=== PATIENT | male | born 1940 | race Caucasian/White ===

== ENCOUNTER 2019-03-22 12:56 | Inpatient (IN) ==
[2019-03-22 14:06] LABS: BASOPHILS # (AUTO) 0.05 10*3/UL; BASOPHILS % (AUTO) 0.6 % (0-1); EOSINOPHILS # (AUTO) 0.15 10*3/UL; EOSINOPHILS % (AUTO) 1.8 % (0-8); Hematocrit [HCT] 44.8 % (42.0-52.0); Hemoglobin [HGB] 14.9 g/dL (14.0-18.0); LYMPHOCYTES # (AUTO) 1.61 10*3/uL; MEAN CORPUSCULAR HGB CONC 33.3 g/dL (33-37); MEAN CORPUSCULAR VOLUME 96.3 FL (80-90); MONOCYTES # (AUTO) 0.81 10*3/UL (0.3-0.8); MONOCYTES % (AUTO) 9.6 % (5-15); NEUTROPHILS # (AUTO) 5.74 10*3/UL; NEUTROPHILS % (AUTO) 68.1 % (50-80); RED BLOOD COUNT 4.65 10^6/uL (4.70-6.10)
[2019-03-22 14:07] LABS: PLATELET MORPHOLOGY COMMENT NORMAL MORPHOLOGY (NORM); RBC MORPHOLOGY COMMENT NORMAL MORPHOLOGY (NORM); WBC MORPHOLOGY COMMENT NORMAL MORPHOLOGY (NORM)
[2019-03-22 14:14] LABS: BLOOD UREA NITROGEN 22 mg/dL (7-22); BUN/CREATININE RATIO 24.44 (6-20); SERUM ALBUMIN 3.8 g/dL (3.5-4.8)
[2019-03-22] MEDS ORDERED: cefTRIAXone Inj 1 GM in Sodium Chloride 0.9% 100 ML IV ONE (17:23)
[2019-03-22] MEDS ORDERED: FUROSEMIDE 10 MG/1 ML - 4 ML IVP ONE (17:29)
[2019-03-22] MEDS ORDERED: LIDOCAINE W/ SODIUM BICARB 0.5 ML SYR SUBD PRN (20:11)
[2019-03-22] MEDS ORDERED: Metoprolol TARTRATE Tab 50 MG TAB PO SCH (21:00)
[2019-03-22] MEDS: Warfarin 5 MG TAB PO SCH (22:17)
[2019-03-22] MEDS: Simvastatin Tab 40 MG TAB PO SCH (22:17)
[2019-03-22] MEDS: Metoprolol TARTRATE Tab 25 MG TAB PO SCH (22:28)
[2019-03-23] MEDS: LEVOTHYROXINE 50 MCG TABLET PO SCH (04:42)
[2019-03-23 05:19] LABS: BASOPHILS # (AUTO) 0.06 10*3/UL; BASOPHILS % (AUTO) 0.7 % (0-1); EOSINOPHILS # (AUTO) 0.16 10*3/UL; EOSINOPHILS % (AUTO) 1.7 % (0-8); Hematocrit [HCT] 45.6 % (42.0-52.0); Hemoglobin [HGB] 15.3 g/dL (14.0-18.0); LYMPHOCYTES # (AUTO) 2.05 10*3/uL; MEAN CORPUSCULAR HGB CONC 33.6 g/dL (33-37); MEAN CORPUSCULAR VOLUME 95.8 FL (80-90); MEAN PLATELET VOLUME 10.1 FL (7.4-12.2); MONOCYTES # (AUTO) 0.91 10*3/UL (0.3-0.8); MONOCYTES % (AUTO) 9.9 % (5-15); NEUTROPHILS # (AUTO) 5.89 10*3/UL; NEUTROPHILS % (AUTO) 64.1 % (50-80); RED BLOOD COUNT 4.76 10^6/uL (4.70-6.10)
[2019-03-23 05:26] LABS: PLATELET MORPHOLOGY COMMENT NORMAL MORPHOLOGY (NORM); RBC MORPHOLOGY COMMENT NORMAL MORPHOLOGY (NORM); WBC MORPHOLOGY COMMENT NORMAL MORPHOLOGY (NORM)
[2019-03-23 05:32] LABS: BLOOD UREA NITROGEN 24 mg/dL (7-22)
[2019-03-23] MEDS: OMEPRAZOLE 20 MG CAPSULE PO SCH (06:56)
[2019-03-23] MEDS: FUROSEMIDE 10 MG/1 ML - 4 ML IVP SCH ×2 (06:57→13:24)
[2019-03-23] MEDS: Meloxicam Tab 7.5 MG TABLET PO SCH (08:43)
[2019-03-23] MEDS: ASPIRIN 81 MG (BABY) CHEWABLE TABLET PO SCH (08:44)
[2019-03-23] MEDS: Metoprolol TARTRATE Tab 25 MG TAB PO SCH ×2 (08:44→20:43)
[2019-03-23] MEDS ORDERED: POTASSIUM CHLORIDE 20 MEQ TAB PO SCH (09:00)
[2019-03-23] MEDS ORDERED: Metoprolol TARTRATE Tab 25 MG TAB PO SCH (09:00)
[2019-03-23] MEDS: cefTRIAXone Inj 2 GM in Sodium Chloride 0.9% 100 ML IV SCH (17:03)
[2019-03-23] MEDS: POTASSIUM CHLORIDE 20 MEQ TAB PO SCH (17:48)
[2019-03-23] MEDS ORDERED: MAGNESIUM OXIDE 400 MG TABLET PO SCH (17:51)
[2019-03-23] MEDS ORDERED: MAGNESIUM OXIDE 400 MG TABLET PO ONE (18:15)
[2019-03-23] MEDS: Simvastatin Tab 40 MG TAB PO SCH (20:42)
[2019-03-23] MEDS: Warfarin 5 MG TAB PO SCH (20:43)
[2019-03-23] MEDS ORDERED: diphenhydrAMINE 25 MG CAPSULE PO PRN (21:00)
[2019-03-24 05:05] LABS: BLOOD UREA NITROGEN 26 mg/dL (7-22)
[2019-03-24] MEDS: LEVOTHYROXINE 50 MCG TABLET PO SCH (05:58)
[2019-03-24] MEDS: OMEPRAZOLE 20 MG CAPSULE PO SCH (07:17)
[2019-03-24] MEDS: POTASSIUM CHLORIDE 20 MEQ TAB PO SCH ×3 (07:17→20:51)
[2019-03-24] MEDS: FUROSEMIDE 10 MG/1 ML - 4 ML IVP SCH (07:17)
[2019-03-24] MEDS: Meloxicam Tab 7.5 MG TABLET PO SCH (09:07)
[2019-03-24] MEDS: Metoprolol TARTRATE Tab 25 MG TAB PO SCH ×2 (09:07→20:52)
[2019-03-24] MEDS: ASPIRIN 81 MG (BABY) CHEWABLE TABLET PO SCH (09:07)
[2019-03-24] MEDS ORDERED: LIDOCAINE HCL 2 % 10 ML JELLY URO-JECT TOPICAL PRN (10:47)
[2019-03-24] MEDS: cefTRIAXone Inj 2 GM in Sodium Chloride 0.9% 100 ML IV SCH (17:31)
[2019-03-24] MEDS: Warfarin 5 MG TAB PO SCH (20:52)
[2019-03-24] MEDS: MAGNESIUM OXIDE 400 MG TABLET PO SCH (20:52)
[2019-03-24] MEDS: Simvastatin Tab 40 MG TAB PO SCH (20:54)
[2019-03-25] MEDS: LEVOTHYROXINE 50 MCG TABLET PO SCH (04:44)
[2019-03-25 04:53] LABS: BASOPHILS # (AUTO) 0.05 10*3/UL; BASOPHILS % (AUTO) 0.4 % (0-1); EOSINOPHILS # (AUTO) 0.15 10*3/UL; EOSINOPHILS % (AUTO) 1.3 % (0-8); Hemoglobin [HGB] 15.5 g/dL (14.0-18.0); MEAN CORPUSCULAR HGB CONC 33.7 g/dL (33-37); MEAN CORPUSCULAR VOLUME 95.2 FL (80-90); MEAN PLATELET VOLUME 10.1 FL (7.4-12.2); MONOCYTES % (AUTO) 10.1 % (5-15); NEUTROPHILS # (AUTO) 8.98 10*3/UL; RED BLOOD COUNT 4.83 10^6/uL (4.70-6.10)
[2019-03-25 05:02] LABS: PLATELET MORPHOLOGY COMMENT NORMAL MORPHOLOGY (NORM); RBC MORPHOLOGY COMMENT NORMAL MORPHOLOGY (NORM); WBC MORPHOLOGY COMMENT NORMAL MORPHOLOGY (NORM)
[2019-03-25 05:09] LABS: BLOOD UREA NITROGEN 26 mg/dL (7-22); SERUM ALBUMIN 4.1 g/dL (3.5-4.8)
[2019-03-25] MEDS: OMEPRAZOLE 20 MG CAPSULE PO SCH (07:28)
[2019-03-25] MEDS: ASPIRIN 81 MG (BABY) CHEWABLE TABLET PO SCH (08:42)
[2019-03-25] MEDS: Meloxicam Tab 7.5 MG TABLET PO SCH (08:42)
[2019-03-25] MEDS: POTASSIUM CHLORIDE 20 MEQ TAB PO SCH ×2 (08:42→21:00)
[2019-03-25] MEDS: Metoprolol TARTRATE Tab 25 MG TAB PO SCH ×2 (08:42→21:00)
[2019-03-25] MEDS ORDERED: Magnesium Sulfate 2gm (Premix) 2 GM/50 ML BAG IV ONE (09:46)
[2019-03-25] MEDS: cefTRIAXone Inj 2 GM in Sodium Chloride 0.9% 100 ML IV SCH (18:59)
[2019-03-25 19:03] VITALS: RESP 16
[2019-03-25] MEDS: Warfarin 5 MG TAB PO SCH (21:00)
[2019-03-25] MEDS: MAGNESIUM OXIDE 400 MG TABLET PO SCH (21:00)
[2019-03-25] MEDS: Simvastatin Tab 40 MG TAB PO SCH (21:00)
[2019-03-26 04:37] LABS: BASOPHILS # (AUTO) 0.06 10*3/UL; BASOPHILS % (AUTO) 0.6 % (0-1); EOSINOPHILS # (AUTO) 0.19 10*3/UL; Hematocrit [HCT] 46.1 % (42.0-52.0); Hemoglobin [HGB] 15.5 g/dL (14.0-18.0); LYMPHOCYTES # (AUTO) 1.66 10*3/uL; MEAN CORPUSCULAR HGB CONC 33.6 g/dL (33-37); MEAN CORPUSCULAR VOLUME 95.2 FL (80-90); MEAN PLATELET VOLUME 10.1 FL (7.4-12.2); MONOCYTES # (AUTO) 1.15 10*3/UL (0.3-0.8); NEUTROPHILS # (AUTO) 6.45 10*3/UL; NEUTROPHILS % (AUTO) 67.3 % (50-80); RED BLOOD COUNT 4.84 10^6/uL (4.70-6.10)
[2019-03-26] MEDS: LEVOTHYROXINE 50 MCG TABLET PO SCH (04:44)
[2019-03-26 04:45] LABS: BLOOD UREA NITROGEN 19 mg/dL (7-22); BUN/CREATININE RATIO 21.11 (6-20); SERUM ALBUMIN 3.9 g/dL (3.5-4.8)
[2019-03-26 04:47] LABS: PLATELET MORPHOLOGY COMMENT NORMAL MORPHOLOGY (NORM); RBC MORPHOLOGY COMMENT NORMAL MORPHOLOGY (NORM); WBC MORPHOLOGY COMMENT NORMAL MORPHOLOGY (NORM)
[2019-03-26] MEDS ORDERED: FUROSEMIDE 20 MG TABLET PO SCH (07:00)
[2019-03-26] MEDS ORDERED: Amoxicill/Clav 875/125mg Tab 1 TAB TAB PO SCH (07:00)
[2019-03-26] MEDS ORDERED: FUROSEMIDE 40 MG TABLET PO SCH (07:00)
[2019-03-26] MEDS: OMEPRAZOLE 20 MG CAPSULE PO SCH (07:30)
[2019-03-26 08:44] VITALS: BP 107/80; TEMP 97.4; O2SAT 97
[2019-03-26] MEDS: ASPIRIN 81 MG (BABY) CHEWABLE TABLET PO SCH (08:56)
[2019-03-26] MEDS: Meloxicam Tab 7.5 MG TABLET PO SCH (08:56)
[2019-03-26] MEDS: POTASSIUM CHLORIDE 20 MEQ TAB PO SCH (08:56)
[2019-03-26] MEDS: Metoprolol TARTRATE Tab 25 MG TAB PO SCH (08:57)
[2019-03-26] MEDS ORDERED: POTASSIUM CHLORIDE 20 MEQ TAB PO SCH (10:00)
== END 2019-03-26 10:39 | disposition home or self-care (01) | DRG 291 ==
LOC: ER 12:56 → MED/SURG 18:34
PROVIDERS: ADMIT Internal Medicine; ATTEND Internal Medicine